=== PATIENT | male | born 1990 | race Hispanic/Latino ===

== ENCOUNTER 2017-09-09 20:55 | Emergency (ER) | payer SELFPAY ==
[2017-09-09] MEDS ORDERED: TYLENOL ONE (21:32)
[2017-09-09] MEDS ORDERED: TYLENOL PO ONE (21:32)
[2017-09-09 21:33] VITALS: BP 121/72
--- NOTE | 2017-09-09 22:37 | Emergency Department Report ---
ED General Adult HPI - General Chief complaint: Back Pain/Injury Stated complaint: BACK PAIN Time Seen by Provider: 09/09/17 22:24 Source: patient, family Mode of arrival: Ambulatory Limitations: No Limitations - History of Present Illness Initial comments: This is a 26-year-old male here complaining of back pain to right upper back. This radiated into his right chest. Denies any injury. Denies any fever or chills. Denies any coughing. Denies any nausea or vomiting or abdominal pain. Pain is 4-10 and sore. Pain only with touch. Denies any runny nose or sore throat. No medication taken prior to coming to the hospital MD Complaint: right upper back pain Onset/Timin -: Gradual, days(s) Location: back Radiation: other (right upper chest) Severity scale (0 -10): 4 Quality: aching Consistency: intermittent Improves with: rest Worsens with: other (touch) Associated Symptoms: denies: confusion, chest pain, cough, diaphoresis, fever/ chills, headaches, loss of appetite, malaise, nausea/vomiting, rash, seizure, shortness of breath, syncope, weakness Treatments Prior to Arrival: none - Related Data Previous Rx's Medication Instructions Recorded Last Taken Type Cyclobenzaprine [Flexeril] 10 mg PO TID PRN #12 tablet 09/09/17 Unknown Rx Ibuprofen [Motrin] 600 mg PO Q8H PRN #12 tablet 09/09/17 Unknown Rx Allergies Allergy/AdvReac Type Severity Reaction Status Date / Time No Known Allergies Allergy Verified 09/09/17 22:03 ED Review of Systems ROS: Stated complaint: BACK PAIN Other details as noted in HPI Constitutional: denies: chills, fever Respiratory: denies: cough, shortness of breath, SOB with exertion, SOB at rest , wheezing Cardiovascular: chest pain (radiating from upper back to right chest). denies: palpitations, dyspnea on exertion, edema, syncope, paroxysmal nocturnal dyspnea Gastrointestinal: denies: abdominal pain, nausea, vomiting, diarrhea Musculoskeletal: back pain, myalgia. denies: joint swelling, arthralgia Skin: denies: rash, lesions Neurological: denies: headache, numbness, paresthesias, abnormal gait ED Past Medical Hx - Past Medical History Previous Medical History?: No - Surgical History Past Surgical History?: Yes Additional Surgical History: cyst removed - Family History Family history: hypertension - Social History Smoking Status: Current Every Day Smoker Substance Use Type: None - Medications Home Medications: Home Medications Medication Instructions Recorded Confirmed Last Taken Type Cyclobenzaprine [Flexeril] 10 mg PO TID PRN #12 tablet 09/09/17 Unknown Rx Ibuprofen [Motrin] 600 mg PO Q8H PRN #12 tablet 09/09/17 Unknown Rx ED Physical Exam - General Limitations: No Limitations General appearance: alert, in no apparent distress - Head Head exam: Present: atraumatic, normocephalic, normal inspection - Eye Eye exam: Present: normal appearance, PERRL, EOMI Pupils: Present: normal accommodation - ENT ENT exam: Present: normal exam, normal orophraynx, mucous membranes moist, TM's normal bilaterally, normal external ear exam - Neck Neck exam: Present: normal inspection, full ROM, other (no C-spine tenderness). Absent: tenderness, lymphadenopathy - Respiratory Respiratory exam: Present: normal lung sounds bilaterally. Absent: respiratory distress, wheezes, rales, rhonchi, stridor, chest wall tenderness, accessory muscle use, decreased breath sounds, prolonged expiratory - Cardiovascular Cardiovascular Exam: Present: regular rate, normal rhythm, normal heart sounds. Absent: systolic murmur, diastolic murmur - GI/Abdominal GI/Abdominal exam: Present: soft, normal bowel sounds. Absent: distended, tenderness, rigid - Extremities Exam Extremities exam: Present: normal inspection, full ROM, normal capillary refill , other (no clubbing, cyanosis or edema. Positive pulses all extremities and no neurovascular compromise). Absent: tenderness, pedal edema, joint swelling, calf tenderness - Back Exam Back exam: Present: normal inspection, full ROM, muscle spasm (right upper back muscle spasm), other (ambulates without any difficulties). Absent: tenderness, CVA tenderness (R), CVA tenderness (L), paraspinal tenderness, vertebral tenderness, rash noted - Expanded Back Exam Expanded Back exam: Absent: saddle anesthesia Back exam: Negative Straight Leg Raising: Left, Right - Neurological Exam Neurological exam: Present: alert, oriented X3, normal gait - Psychiatric Psychiatric exam: Present: normal affect, normal mood - Skin Skin exam: Present: warm, dry, intact, normal color. Absent: rash ED Course Vital Signs 09/09/17 09/09/17 21:26 22:51 Temperature 98.2 F Pulse Rate 88 Respiratory 17 Rate Blood Pressure 121/72 O2 Sat by Pulse 98 Oximetry - Reevaluation(s) Reevaluation #1: 09/09/17 22:56 Patient given Flexeril 10 g by mouth and Motrin 800 mg by mouth for upper back spasm and pain. ED Medical Decision Making - Medical Decision Making ED course: 26-year-old male here reporting right upper back pain that pierces or his right upper chest without any injury. I saw and examined patient and she was found to have left upper back spasm and musculoskeletal pain. Diagnosis and treatment plan explained to patient and he voiced understanding. A/P 1: Left upper back spasm: Patient was given Tylenol 650 mg in triage which did not help his pain. Flexeril 10 mg by mouth and Motrin 800 mg by mouth and referred to primary care. Referral to orthopedic doctor 2: Musculoskeletal pain: Flexeril and Motrin for pain control Education given medication, diagnosis , Rice therapy and to avoid heavy lifting. He voiced understanding. Patient discharged home with family in stable condition with prescription for L and Motrin. His vital signs are stable she is afebrile and he is nontoxic. I discussed with him if his condition worsens to return to the emergency room otherwise follow-up with outside Medical [facility] as he does not have a primary care physician. - Differential Diagnosis back strain, back pain, muscle spasm Critical care attestation.: If time is entered above; I have spent that time in minutes in the direct care of this critically ill patient, excluding procedure time. ED Disposition Clinical Impression: Back muscle spasm, Musculoskeletal pain Disposition: -01 TO HOME OR SELFCARE Is pt being admited?: No Does the pt Need Aspirin: No Condition: Stable Instructions: Musculoskeletal Pain (ED), Muscle Spasm (ED), Back Pain (ED) Additional Instructions: See discharge instruction rice therapy Motrin and Flexeril but please not drive or operate heavy machinery while taking Flexeril as this causes drowsiness Follow-up with [facility]. Follow up with orthopedic doctor Prescriptions: Cyclobenzaprine [Flexeril] 10 mg PO TID PRN #12 tablet PRN Reason: Muscle Spasm Ibuprofen [Motrin] 600 mg PO Q8H PRN #12 tablet PRN Reason: Pain Referrals: [facility] [Outside] - 09/10/17 TANI SIN MD [Staff Physician] - 09/10/17 Forms: Work/School Release Form(ED)
[2017-09-09] MEDS ORDERED: MOTRIN PO ONE (22:49)
[2017-09-09] MEDS ORDERED: FLEXERIL PO ONE (22:51)
== END 2017-09-09 22:55 | disposition home or self-care (01) ==
LOC: ED 20:55
DX: M62.830 Muscle spasm of back (principal); M54.89 Other dorsalgia; F17.200 Nicotine dependence, unspecified, uncomplicated
CPT/HCPCS: 99282